=== PATIENT | male | born 1995 ===

== ENCOUNTER 2019-10-14 17:43 | Emergency (ER) | payer OTHER ==
[2019-10-14 18:33] VITALS: BP 116/71
--- NOTE | 2019-10-14 18:55 | ED ---
Skin Complaint - HPI Summary HPI Summary: 24 yr old with small boils that appear and disappear in bilateral axilla. At times they drain pus. He has no fever or chills. He has been having the problem about two months. Putting on heavier deodorant seems to make it worse as it seems to cake up his armpit hair follicles. He has no other complaint.s - History of Current Complaint Chief Complaint: [facility] Time Seen by Provider: 10/14/19 18:43 Stated Complaint: SKIN COMPLAINT Pain Intensity: 0 - Allergy/Home Medications Allergies/Adverse Reactions: Allergies Allergy/AdvReac Type Severity Reaction Status Date / Time No Known Allergies Allergy Verified 10/14/19 18:28 PMH/Surg Hx/FS Hx/Imm Hx Previously Healthy: Yes Infectious Disease History: No Infectious Disease History: Denies: Traveled Outside the [place] in Last 30 Days - Family History Known Family History: Positive: None - Social History Alcohol Use: Occasionally Substance Use Type: Reports: Marijuana Substance Use Comment - Amount & Last Used: occasionally Smoking Status (MU): Never Smoked Tobacco Type: Cigars Review of Systems Constitutional: Negative Positive: Other - bilateral axillary hair follicle irritation, swelling. All Other Systems Reviewed And Are Negative: Yes Physical Exam Triage Information Reviewed: Yes Vital Signs On Initial Exam: Initial Vitals Temp Pulse Resp BP Pulse Ox 98.6 F 65 18 116/71 98 10/14/19 18:29 10/14/19 18:29 10/14/19 18:29 10/14/19 18:29 10/14/19 18:29 Vital Signs Reviewed: Yes Appearance: Positive: Well-Appearing, No Pain Distress Skin: Positive: Warm, Skin Color Reflects Adequate Perfusion, Other - bilateral axillas with areas of inflammed hair follicles with swelling. No cellulitis. No drainagel. Head/Face: Positive: Normal Head/Face Inspection Eyes: Positive: EOMI, NANCY ENT: Positive: Normal ENT inspection Neck: Positive: Nontender Respiratory/Lung Sounds: Positive: Clear to Auscultation, Breath Sounds Present Cardiovascular: Positive: RRR. Negative: Murmur Abdomen Description: Negative: Distended Musculoskeletal: Positive: Strength/ROM Intact Neurological: Positive: Sensory/Motor Intact, Alert, Oriented to Person Place, Time, CN Intact II-III Psychiatric: Positive: Normal Diagnostics - Vital Signs Vital Signs Temp Pulse Resp BP Pulse Ox 10/14/19 18:29 98.6 F 65 18 116/71 98 - Laboratory Lab Statement: Any lab studies that have been ordered have been reviewed, and results considered in the medical decision making process. Course/Dx - Course Course Of Treatment: 24 yr old with folliculitis. Rx with Doxy. Fu with PMD. - Diagnoses Provider Diagnoses: Folliculitis Discharge ED - Sign-Out/Discharge Documenting (check all that apply): Patient Departure All imaging exams completed and their final reports reviewed: No Studies - Discharge Plan Condition: Good Disposition: HOME Prescriptions: DOXYcycline CAP(*) [DOXYcycline 100MG CAP(*)] 100 mg PO BID #20 cap Patient Education Materials: Folliculitis (ED) Referrals: No Primary Care Phys,NOPCP [Primary Care Provider] - [facility] [[facility]] - 2 Days - Billing Disposition and Condition Condition: GOOD Disposition: Home
== END 2019-10-14 18:54 | disposition home or self-care (01) ==
LOC: UCCORT 17:43
DX: L73.9 Follicular disorder, unspecified (principal)
CPT/HCPCS: 99202; G0463